=== PATIENT | male | born 1980 | race Caucasian/White ===

== ENCOUNTER 2019-11-08 02:37 | Emergency (ER) | payer OTHER ==
[2019-11-08] MEDS ORDERED: NS 0.9% 1000 ML** 1,000 ML IV ONE (02:53)
[2019-11-08] MEDS ORDERED: Ondansetron INJ* 2 MG/ML VIAL IV ONE (02:54)
[2019-11-08] MEDS ORDERED: Morphine 10 MG/ML VIAL (1 ml) IV ONE (02:54)
[2019-11-08] MEDS ORDERED: Ketorolac INJ* 30 MG/ML 1 ML VIAL IV PUSH ONE (02:54)
--- NOTE | 2019-11-08 02:59 | ED ---
GI/ HPI - HPI Summary HPI Summary: Pt is a 39 y/o M presenting to the ED brought in by EMS for possible kidney stone. He reports RLQ abd pain, R lower back pain, and R testicular pain, accompanied by nausea and vomiting. Onset 01:20. Hx kidney stones. - History of Current Complaint Chief Complaint: EDAbdPain Time Seen by Provider: 11/08/19 02:51 Stated Complaint: NAUSEA/VOM PER EMS Hx Obtained From: Patient Onset/Duration: Started Hours Ago, Still Present Timing: Constant, Lasting Hours Severity: Moderate Current Severity: Severe Pain Intensity: 8 Location of Pain: RLQ Additional Locations for Males: Testicles Associated Signs and Symptoms: Positive: Back Pain, Nausea, Vomiting, Abdominal Pain, Other: - testicular pain Aggravating Factor(s): Nothing Alleviating Factor(s): Nothing - Allergy/Home Medications Allergies/Adverse Reactions: Allergies Allergy/AdvReac Type Severity Reaction Status Date / Time Tree Nuts Allergy Severe Anaphylatic Verified 11/08/19 03:00 Shock erythromycin base Allergy Unknown See Comment Verified 11/08/19 03:35 Home Medications: Home Medications Zyrtec 11/08/19 [History] PMH/Surg Hx/FS Hx/Imm Hx Previously Healthy: Yes Endocrine/Hematology History: Denies: Hx Diabetes History: Reports: Hx Kidney Stones Infectious Disease History: No Infectious Disease History: Denies: Traveled Outside the [place] in Last 30 Days - Family History Known Family History: Negative: Diabetes - Social History Alcohol Use: None Hx Substance Use: No Substance Use Type: Reports: None Hx Tobacco Use: No Smoking Status (MU): Never Smoked Tobacco Review of Systems Positive: Abdominal Pain, Vomiting, Nausea Positive: pain - testicular Positive: Myalgia - R low back pain All Other Systems Reviewed And Are Negative: Yes Physical Exam - Summary Physical Exam Summary: Appearance: Very colicky and uncomfortable appearing gentleman in obvious pain. Vital signs are unremarkable. Skin: Warm, dry, no obvious rash Eyes: sclera anicteric, no conjunctival pallor ENT: mucous membranes moist, pharynx appears normal Neck: Supple, nontender Respiratory: Clear to auscultation, no signs of respiratory distress Cardiovascular: Normal S1, S2. No murmurs. Normal distal pulses in tibial and radial bilaterally. Abdomen: Soft, nontender, normal active bowel sounds present Musculoskeletal: Normal, Strength/ROM Intact Neurological: A&Ox3, awake and alert, mentation is normal, speech is fluent and appropriate Psychiatric: affect is normal, does not appear anxious or depressed : No testicular edema or tenderness. No hernias noted in the R inguinal area. Triage Information Reviewed: Yes Vital Signs On Initial Exam: Initial Vitals Temp Pulse Resp BP Pulse Ox 98.1 F 91 21 142/76 96 11/08/19 02:48 11/08/19 02:48 11/08/19 02:48 11/08/19 02:48 11/08/19 02:48 Vital Signs Reviewed: Yes Procedures - Sedation Patient Received Moderate/Deep Sedation with Procedure: No Diagnostics - Vital Signs Vital Signs Temp Pulse Resp BP Pulse Ox 11/08/19 02:48 98.1 F 91 21 142/76 96 - Laboratory Result Diagrams: 11/08/19 03:01 11/08/19 03:01 Lab Statement: Any lab studies that have been ordered have been reviewed, and results considered in the medical decision making process. GIGU Course/Dx - Course Course Of Treatment: Pt is a 39 y/o M presenting to the ED brought in by EMS for possible kidney stone. He reports RLQ abd pain, R lower back pain, and R testicular pain, accompanied by nausea and vomiting. Onset 01:20. Hx kidney stones. On exam, this is a very colicky and uncomfortable appearing gentleman in obvious pain. Vital signs are unremarkable. There is no testicular edema or tenderness. No hernias noted in the R inguinal area. The pt achieved very good control of his pain. I do not feel CT or US imaging is necessary tonight. The pt is from [place] and will followup with his urologist there if needed. Pt will be d/c'ed with dx of R renal colic. He is stable and agreeable with this plan. - Diagnoses Provider Diagnoses: Renal colic on right side Discharge ED - Sign-Out/Discharge Documenting (check all that apply): Patient Departure - Discharge Plan Condition: Improved Disposition: HOME Prescriptions: Ondansetron ODT TAB* [Zofran 4 MG Odt TAB*] 8 mg PO Q6H PRN #15 tab.odt PRN Reason: Nausea oxyCODONE/Acetamin 5/325 MG* [Percocet 5/325 TAB*] 2 tab PO Q4H PRN #20 tab MDD 8 PRN Reason: Pain - Severe Patient Education Materials: Renal Colic (ED) Additional Instructions: Contact your urologist in [place] for followup if you are still having pain towards the end of the week, occasionally surgery is needed. - Billing Disposition and Condition Condition: IMPROVED Disposition: Home - Attestation Statements Document Initiated by Scribe: Yes Documenting Scribe: Ann Sandhu Provider For Whom Scribe is Documenting (Include Credential): Larry Torres MD. Scribe Attestation: Ann Bush, scribed for Larry Torres MD. on 11/08/19 at 0640. Scribe Documentation Reviewed: Yes Provider Attestation: The documentation as recorded by the Ann kendrick accurately reflects the service I personally performed and the decisions made by , Larry Torres MD. Status of Scribe Document: Viewed
[2019-11-08 03:09] LABS: ABS Basophils 0.1 10^3/ul (0-0.2); ABS Eosinophils 0.2 10^3/ul (0-0.6); ABS Lymphocytes 3.3 10^3/ul (1.0-4.8); ABS Monocytes 0.9 10^3/ul (0-0.8); ABS Neutrophils 6.2 10^3/ul (1.5-7.7); Eosinophil % 1.6 %; Hematocrit 41 % (42-52); Hemoglobin 14.1 g/dL (14.0-18.0); Mean Corpuscular HGB Conc 34 g/dL (31-36); Mean Corpuscular Hemoglobin 30 pg (27-31); Mean Corpuscular Volume 88 fL (80-94); Mean Platelet Volume 9.3 fL (7.4-10.4); Platelet Count 154 10^3/uL (150-450); Red Blood Count 4.66 10^6 /uL (4.18-5.48); Red Cell Distribution Width 14 % (10-15); White Blood Count 10.6 10^3/uL (3.5-10.8)
[2019-11-08 03:24] LABS: BUN/Creatinine Ratio 21.7 (8-20); Calcium 9.6 mg/dL (8.6-10.3); EGFR African American 111.4 (>60); EGFR Non-African American 92.1 (>60); Potassium 3.6 mmol/L (3.5-5.0)
[2019-11-08 06:16] VITALS: BP 121/73
== END 2019-11-08 06:13 | disposition home or self-care (01) ==
LOC: ED 02:37
DX: N23 Unspecified renal colic (principal); M54.9 Dorsalgia, unspecified; R11.2 Nausea with vomiting, unspecified; Z87.442 Personal history of urinary calculi; N50.819 Testicular pain, unspecified
CPT/HCPCS: 36415; 80048; 85025; 96361; 96374; 96375; 99284; J1885; J2270; J2405